=== PATIENT | female | born 1955 | race Two or more races ===

== ENCOUNTER 2024-12-14 09:58 | Outpatient (AMB) | payer OTHER, SELFPAY ==
--- NOTE | 2024-12-14 10:04 | A.OFFVIS_ITS ---
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 [place] revealed left hemispheric paroxysmal discharges. She had one seizure on 10/13/2024 and?two seizures on 10/29/2024 within few minutes of each other. She was sitting in recliner and her whole body was shaking. No incontinence or tongue bite. When she came out of it, she was confused and had headache. She slept for about two hours afterward. She had been taking levetiracetam 1000mg twice a day, however prescribed dose was 1500mg twice a day. She was here with her sister. She was taking levetiracetam 1500mg twice a day. No seizures. Headaches have been okay. Naproxen as needed helps. She has had to use it about 3 times in the last 6 weeks. Sleep was okay. She tripped and fell a few days ago and hit left arm on dresser, has bruising to left upper arm. Did not hit head. Walking with cane. [facility] Medical History (Updated 12/14/24 @ 10:18 by Tiara Gandara CNP) Migraine Chronic static encephalopathy Epilepsy GERD (gastroesophageal reflux disease) Hypertension Depression Seizure disorder Review of Systems Const Denies chills, Denies daytime sleepiness, Denies difficulty sleeping, Denies fatigue, Denies fever(s), Reports frequent falls, Reports headache(s), Denies increased appetite, Denies poor appetite, Denies snoring, Denies weakness, Denies weight gain and Denies weight loss Eyes Denies loss of vision ENT Denies vertigo, Denies dizziness and Reports headache(s) Card Denies chest pain at rest, Denies chest pain with activity, Denies syncope, Denies leg edema and Denies palpitations Resp Denies snoring GI Denies constipation, Denies heartburn, Denies diarrhea and Denies nausea Denies urinary frequency, Denies urinary incontinence and Denies urinary urgency Musc Denies abnormal gait, Denies numbness and Denies tingling Skin/Breast Denies dry skin and Denies rash Neuro Denies abnormal gait, Denies vertigo, Denies dizziness, Denies syncope, Reports frequent falls, Reports headache(s), Denies lack of coordination, Denies loss of vision, Reports memory loss, Denies numbness, Denies restless legs, Reports seizure-like activity (None in last 6 weeks), Denies tingling, Denies paresthesias, Denies tremor(s) and Denies weakness Psych Denies anxiety, Denies depression, Denies auditory hallucinations, Reports memory loss, Denies visual hallucinations and Denies suicidal ideation Endo Denies fatigue and Denies palpitations Physical Exam Const Other: General Appearance:? normal, in no acute distress. Skin:? no rashes, no significant birthmarks. Bruising to LUE. Heart:? S1, S2 normal, no murmurs. Lungs:? clear anteriorly and posteriorly. Extremities:? no edema. Psych:? alert, oriented, cognitive function intact, cooperative with exam. Neuro Other: Mental Status:?Alert and awake, answers simple questions. Cranial Nerves:?Pupils are equal, round and reactive to light. External occular muscles are intact. Visual griffiths are full. Face is symmetrical. Facial sensations are normal. Tongue is midline. Palate elevates symmetrically. Shoulder shrugging is normal. Hearing to bedside conversation is normal. Motor Examination:?DTRs 1+, mild left hemiparesis Sensory Exam:?....? Coordination:?No ataxia,?no titubation.? Gait Exam: Walking with cane. Cerebellar Signs:?[id number] is okay. Extrapyramidal System:?No tremor, rigidity with normal facial expressions.? Pronator Drift:?Not present.? Involuntary Movements:?No tremors seen.? Speech:?Normal.? Assessment & Plan Assessment & Plan (1) Epilepsy: Code(s): G40.909 - Epilepsy, unspecified, not intractable, without status epilepticus Category: Medical Qualifiers: Epilepsy type: unspecified Intractability: not intractable Status epilepticus: without status epilepticus Qualified Code(s): G40.909 - Epilepsy, unspecified, not intractable, without status epilepticus Plan: Continue levetiracetam 500mg 3 tablets twice a day (2) Chronic static encephalopathy: Code(s): G93.49 - Other encephalopathy Category: Medical Plan: Continue clorazepate dipotassium 7.5mg 1 tablet three times a day (3) Migraine: Code(s): G43.909 - Migraine, unspecified, not intractable, without status migrainosus Category: Medical Qualifiers: Migraine type: unspecified Status migrainosus presence: without status migrainosus Intractability: not intractable Qualified Code(s): G43.909 - Migraine, unspecified, not intractable, without status migrainosus Plan: Continue naproxen 500mg 1 tablet with food or milk as needed for headache once a day #10 for 30 days (4) Left arm pain: Code(s): M79.602 - Pain in left arm Category: Medical Plan: XR L shoulder ordered XR L humerus ordered Reviewed testing ordered Plan Meds tried: sumatriptan (hallucinations) Orders: Orders XR shoulder LT min 2V Today M79.602 - Pain in left arm XR humerus LT Today M79.602 - Pain in left arm Coding Level of Care Code Est Pt Level 4 (74396) Diagnoses Nonintractable epilepsy without status epilepticus, unspecified epilepsy type G40.909 Epilepsy type: unspecified Intractability: not intractable Status epilepticus: without status epilepticus Chronic static encephalopathy G93.49 Migraine without status migrainosus, not intractable, unspecified migraine type G43.909 Migraine type: unspecified Status migrainosus presence: without status migrainosus Intractability: not intractable Left arm pain M79.602
--- OUTSIDE RECORDS SUMMARY | 2024-12-14 10:43 | XMS_ITS | Clinical Summary ---
Author Organization [facility] Address [address] [place] [address] Care Team Providers Care Demand Generator Manager Name Role Phone Antonina Chinchilla MD Primary Care Prov ider Allergies Active Allergy Reactions Criticality Noted Date Comments Eslicarbazepine Diarrhea Peanuts 01/10/2017 Rufinamide 08/08/2021 Tramadol Itching Low 11/21/2018 Hydrocodone-Acetaminophen 01/10/2017 Medications Medication Sig Dispensed Refills Start Date End Date Status clorazepate (TRANXENE) 7.5 MG tablet 0 01/01/2017 Active esomeprazole (NEXIUM) 40 MG capsule 0 12/14/2016 Active COMFORT EZ PEN NEEDLES 32G X 4 MM MISC 0 12/24/2016 Active levETIRAcetam (KEPPRA) 500 MG tablet 0 12/24/2016 Active metoprolol succinate (TOPROL-XL) 24 hr tablet 25 mg 0 12/24/2016 Active FORTEO 600 MCG/2.4ML injection 0 12/24/2016 Active ALBUTEROL IN albuterol (refill) 90 mcg/actuation aerosol inhaler Q 4-6 HRS PRN COUGH/WHEEZE 0 08/13/2012 Active alendronate (FOSAMAX) tablet 70 mg alendronate 70 mg tablet 0 Active Eslicarbazepine Acetate (APTIOM PO) Aptiom 400 mgs for one week then increase to 600 for 1 week and then increase to 800 and then she sees Dr. Garcia 0 Active carBAMazepine (TEGretol) 200 MG tablet carbamazepine 200 mg tablet 0 Active cyclobenzaprine (FLEXERIL) 10 MG tablet cyclobenzaprine 10 mg tablet 0 Active lamoTRIgine 50 MG TBDP lamotrigine 50 mg disintegrating tablet Take 1 tablet twice a day by oral route. 0 Active levoFLOXacin (LEVAQUIN) 250 MG tablet levofloxacin 250 mg tablet 0 Active lisinopril (PRINIVIL,ZESTRIL ) tablet 20 mg lisinopril 20 mg tablet DAILY 0 12/03/2013 Active Esomeprazole Magnesium (NEXIUM PO) Nexium 20 mg capsule,delayed release Take 1 capsule every day by oral route for 30 days. generic name esomeprazole 0 Active nicotine (NICODERM CQ) 14 MG/24HR nicotine 14 mg/24 hr daily transdermal patch Q 24 HOURS 0 09/28/2013 Active sertraline (ZOLOFT) 25 MG tablet sertraline 25 mg tablet 0 Active topiramate (TOPAMAX) 25 MG tablet topiramate 25 mg tablet 0 Active Lacosamide (VIMPAT) 100 MG TABS tablet Vimpat 100 mg tablet 0 Act adin omeprazole (PriLOSEC) 40 MG capsule omeprazole 40 mg capsule,delayed release 0 Active amitriptyline (ELAVIL) 10 MG tablet TAKE 1 TABLET BY MOUTH EVERY NIGHT AT BEDTIME; NEEDED INCREASE BY 1 TABLET PER NIGHT PER WEEK UP TO 40mg EVERY NIGHT AT BEDTIME 0 05/06/2020 Active senna (Senna-Time) 8.6 MG tablet daily. 0 08/04/2020 Active pantoprazole (PROTONIX) 40 MG tablet daily. 0 08/04/2020 Active melatonin 3 MG TABS tablet melatonin 3 mg tablet Take 2 tablets by oral route as directed. 0 08/04/2020 Active gabapentin (NEURONTIN) 100 MG capsule gabapentin 100 mg capsule Take 1 capsule 3 times a day by oral route as directed. 0 08/04/2020 Active HYDROmorphone (DILAUDID) 2 MG tablet Take 1 tab every 4 hours as needed for pain. May fill for lesser quantity. 30 tablet 0 09/06/2020 Active Calcium Citrate + D3 Maximum 315-250 MG-UNIT TABS TAKE ONE TABLET BY MOUTH 3 (THREE) TIMES A DAY 0 12/05/2020 Active Cholecalciferol (Vitamin D) 50 MCG (1999 UT) tablet Take by mouth daily. 0 12/05/2020 Acti ve denosumab (PROLIA) injection 60 mg/mL Inject 60 mg under the skin. 0 10/22/2014 Active esomeprazole (NexIUM) 40 MG capsule Take 40 mg by mouth. 0 02/23/2016 Acti ve amoxicillin (AMOXIL) 500 MG tablet Take 4 tabs 1 hour prior to dental or surgical procedure 20 tablet 3 08/08/2021 Active Active Problems Problem Noted Date Diagnosed Date Postop check 11/04/2018 Postop check 09/23/2018 Postop check 09/23/2018 Arthritis of knee, right 03/12/2018 Arthritis of knee, left 03/12/2018 Status post arthroscopy of left knee 02/21/2017 Left knee pain 01/10/2017 Family History Medical History Relation Name Comments Tuberculosis Father Diabetes Mother Heart disease Mother Diabetes Other Lupus Other Diabetes Sister Rheumatologic disease Sister Relation Name Status Comments Father Mother Other Sister Social History Tobacco Use Types Packs/Day Years Used Date Smoking Tobacco: Never Assessed Sex and Gender Information Value Date Recorded Sex Assigned at Not on file Gender Identity Not on file Sexual Orientation Not on file Job Start Date Occupation Industry Not on file Not on file Not on file Last Filed Vital Signs Vital Sign Reading Time Taken Comments Blood Pressure - - Pulse - - Temperature - - Respiratory Rate - - Oxygen Saturation - - Inhaled Oxygen Concentration - - Weight 67.1 kg (148 lb) 08/22/2018 12:48 PM EDT Height 142.2 cm (4' 8 ) 08/22/2018 12:48 PM EDT Body Mass Index 33.18 08/22/2018 12:48 PM EDT Plan of Treatment Health Maintenance Due Date Last Done Comments Hepatitis C Screening 1955 Depression Screening 1967 BMI Counseling 1973 Preventative Health Evaluation 1973 DTap / Tdap / Td (1 - Tdap) 1974 Colon Cancer Screening (Colonoscopy) 2000 Breast Cancer Screening (Mammogram) 2005 Shingrix-Zoster Vaccine (1 of 2) 2005 Fall Risk Assessment 2020 Osteoporosis Screening (DEXA Scan) 2020 Pneumococcal Vaccine (1 of 1 - PCV) 2020 COVID-19 Vaccine (3 - 2023- season) 2024 10/15/2020, 09/24/2020 Influenza Vaccine (#1) 2025 , 04/06/2020, 03/11/2019, Additional history exists RSV Adult > 60+ Yrs or (1 - 1-dose 75+ series) 2030 Hepatitis B Vaccines Aged Out No long er eligible based on patient's age to complete this topic RSV Ped < 20 months Aged Out No longe r eligible based on patient's age to complete this topic Care Teams Demand Generator Manager Relationship Specialty Start Date End Date Antonina Chinchilla MD [address] [address] PCP - General Internal Medicine 02/20/18
--- OUTSIDE RECORDS SUMMARY | 2024-12-14 10:43 | XMS_ITS | Data Portability ---
Author Organization [facility] Address [address] [place] [address] [address] Team [address] Care Place Change Roof Bolter Name Role Phone FRANCESCA CARRERA Primary Care Provider Assessment Encounter Date Assessment Date Assessment LastModified by Organization Details LastModified Time 08/17/2022 08/17/2022 67-year-old female status post bilateral knee arthroplasties with Dr. Terrazas continues to have intermittent discomfort due to lack of exercise. He has been encouraged throughout her course that she needs to stretch every day which she states that she plans on doing however she forgets to do so admittedly. She knows will take her antibiotic prophylaxis prior to dental work which will be refilled on an as-needed basis. Follow-up visit 1 year's time for repeat clinical exam should she have any other orthopedic needs should they arise she should contact her office. She agrees with the above-noted plan. Additional treatment plan discussed with the patient in detail included the following; - Provider focused nonsteroidal anti-inflammatory regimen (discussed were the pros, cons, benefits and risks as well as any black box warnings) - Analgesic pain medication for pain suppression (discussed were the pros, cons, benefits and risks as well as any black box warnings) - The use of topical pain relieving medication were discussed - The use of ice to decrease inflammation and pain - The use of assistive ambulatory devices for ambulation and fall prevention - Formal specific guided physical therapy program I reviewed my findings at length with the patient today. We discussed the nature and etiology of this problem along with current treatment options. We discussed the expected course and outcomes and what to expect. We also discussed risks and benefits. All of their questions were answered today, and there was exhibited understanding and comprehension of all that was discussed. 10 minutes were spent reviewing previous imaging and charting. 10 minutes were spent obtaining patient history. 5 minutes were spent on physical exam. 5minutes were spent explaining diagnosis and assessment. Today's documentation was made using voice recognition software. This note may contain grammatical errors secondary to the software. Not available 08/17/2022 08:52:17 Plan of Treatment Reminders Order Date Submit Date Provider Last Modified By Organization Details Last Modified Time Details Appointments None recorded. Lab None recorded. Referral None recorded. Procedures None recorded. Surgeries None recorded. Imaging XR, knee, 1 or 2 view 2022 023 [facility], [address], [place], [address], 10:06:39 XR, knee, 1 or 2 view 2022 023 [email or web address] Not available 14:10:10 Medication Orders amoxicillin 500 mg tablet 2022 023 [facility], [place] - [id number], [address] [place] [address], [place], [address], 08:51:11 Patient TargetsNo targets recorded. Patient Instructions Encounter Date Encounter Id Patient Instructions Last Modified By Organization Details Last Modified Time 08/17/2022 [id number] Bilateral knee x-rays reveal well-seated well-positioned total knee arthroplasties without sign of loosening without acute bony abnormality. Not available 08/17/2022 08:52:32 Reason for Referral None Reported. Procedures Surgical History Date Name Laterality Status Provider Name and Address Organization Details Recorded Time operation on breast completed Chloe Ascencio [facility] 08/06/2022 13:53:28 cholecystectomy completed Chloe Ascencio [facility] 08/06/2022 13:53:44 hysterectomy completed Chloe Ascencio [facility] 08/06/2022 13:53:56 arthroplasty of knee completed Chloe Ascencio [facility] 08/06/2022 13:54:10 Imaging Results None recorded. Procedure Notes None recorded. Medical Equipment None Reported. Allergies Allergen ID Allergen Name Allergen Category Reaction Reaction Severity Criticality Documentation Date Start Date Code Code System Note Provider Name and Address Organization Details Recorded Time 29 eslicarba zepine medicatio n Not available Not available Not available 08/06/2022 74956 02 RxNorm Chloe Ascencio null, [facility] 3 13:45:20 30 acetamino phen / hydrocodo ne medicatio n Not available Not available Not available 08/06/2022 33355 2 RxNorm Chloe Ascencio null, [facility] 3 13:45:31 31 tramadol medicatio n Not available Not available Not available 08/06/2022 31440 RxNorm Chloe Ascencio null, [facility] 13:45:39 855 peanut allergeni c extract food,medi cation Not available Not available unabletoasse 08/17/2022 93823 8 RxNorm VICTOR MANUEL RUVALCABA PA-C [address], [place], [address], [facility] 3 08:35:05 856 rufinamid e medicatio n Not available Not available Not available 08/17/2022 63486 RxNorm VICTOR MANUEL RUVALCABA PA-C [address], [place], [address], [facility] 3 08:35:28 Medications Name Sig Start Date Stop Date Status Note LastModified by Organization Details LastModified Time amoxicillin 500 mg capsule TAKE FOUR CAPSULES BY MOUTH 1 HOUR prior to TO dental work active Not Available Not Available Not Available atorvastatin 40 mg tablet TAKE 1 TABLET BY MOUTH ONCE DAILY active Not Available Not Available No t Available doxycycline hyclate 100 mg capsule TAKE 1 CAPSULE BY MOUTH two (2) times a day FOR 10 DAYS active Not Available Not Available No t Available polyethylene glycol 3350 17 gram oral powder packet MIX THE CONTENT OF 1 PACKET (17gm) IN WATER AND DRINK ONCE A DAY active Not Available Not Available No t Available levetiraceta m 500 mg tablet TAKE 3 TABLETS BY MOUTH two (2) times a day active Not Available Not Available No t Available omeprazole 40 mg capsule,rene yed release TAKE 1 CAPSULE BY MOUTH ONCE DAILY DIRECTED active Not Available Not Available No t Available amoxicillin 500 mg tablet Take 4 tabs 1 hour prior to dental work 2022 active Not Available Not Available Not Avai lable nystatin 100,000 unit/gram topical cream APPLY TO THE AFFECTED AREA(S) BY TOPICAL ROUTE 2 TIMES PER DAY active Not Available Not Available No t Available methimazole 5 mg tablet TAKE 1 TABLET BY MOUTH ONCE DAILY active Not Available Not Available No t Available sertraline 25 mg tablet TAKE 1 TABLET BY MOUTH ONCE DAILY active Not Available Not Available No t Available metoprolol succinate ER 25 mg tablet,exten ded release 24 hr TAKE ONE TABLET BY MOUTH EVERY DAY DIRECTED active Not Available Not Available No t Available methimazole 10 mg tablet TAKE 1 TABLET BY MOUTH ONCE DAILY active Not Available Not Available No t Available sertraline 50 mg tablet TAKE 1 TABLET BY MOUTH ONCE DAILY active Not Available Not Available No t Available clorazepate dipotassium 7.5 mg tablet TAKE 1 & 1/2 TABLETS BY MOUTH 3 (THREE) TIMES A DAY active Not Available Not Available Not Available hydrocortiso ne 1 % topical cream with perineal applicator APPLY A THIN LAYER TO THE AFFECTED AREA(S) BY TOPICAL ROUTE 2 TIMES PER DAY active Not Available Not Available No t Available nitrofuranto in monohydrate/ macrocrystal s 100 mg capsule TAKE 1 CAPSULE BY MOUTH two (2) times a day DIRECTED FOR 7 DAYS active Not Available Not Available N ot Available sertraline active Not Available Not Av ailable Not Available alendronate active Not Available Not A vailable Not Available omeprazole active Not Available Not Av ailable Not Available lamotrigine active Not Available Not A vailable Not Available albuterol sulfate active Not Available Not Available Not Available amitriptylin e active Not Available Not Available Not Available lisinopril active Not Available Not Av ailable Not Available metoprolol succinate active Not Available Not Available No t Available gabapentin active Not Available Not Av ailable Not Available Topamax active Not Available Not Avail able Not Available Forteo active Not Available Not Availa ble Not Available Vitamin D3 50 mcg (2,000 unit) tablet TAKE 1 TABLET BY MOUTH ONCE DAILY active Not Available Not Available No t Available lacosamide active Not Available Not Av ailable Not Available calcium 315 mg (as citrate)-vit zayas D3 6.25 mcg (250 unit) tablet TAKE 1 TABLET BY MOUTH 3 (THREE) TIMES A DAY active Not Available Not Available Not Available Gavilyte-C 240 gram-22.72 gram-6.72 gram-5.84 gram oral solution fill container WITH WATER TO fill line AND DRINK 8ounces BY MOUTH DIRECTED. FOLLOW instruction s given BY doctor office active Not Available Not Available No t Available Cerovite Senior 0.4 mg-300 mcg-250 mcg tablet TAKE 1 TABLET BY MOUTH ONCE DAILY active Not Available Not Available No t Available eslicarbazep ine active Not Available Not Available Not Available Vitals None Recorded Social History None recorded. Functional Status None recorded. Mental Status None recorded. Family History Relationship Description Onset Age of this Age Resolved Age Notes LastModified by Organization Details LastModified Time Mother Diabetes mellitus [email or web address] Not available 2022 13:50:34 Mother Heart disease [email or web address] Not available 2022 13:50:52 Father Tuberculosis [email or web address] Not availa ble 08/06/2022 13:52:01 Sister Type 2 diabetes mellitus [email or web address] Not available 2022 13:52:25 Sister Rheumatoid arthritis [email or web address] Not available 2022 13:53:09 Medical History Condition Response Hypertension Y Gynecological HistoryNo gynecological history recorded. Obstetrics History GPAL:G 0 P 0 0 0 0 Past Encounters Encounter ID Performer Location Encounter Start Date Encounter Closed Date Diagnosis/Indication Diagnosis SNOMED-CT Code Diagnosis ICD10 Code Diagnosis Note [id number] [place] [id number] 08/17/2022 08:22:45 08/17/2022 08:53:31 History of total knee arthroplasty 9404221317 105 Z96.659 History of right total knee replacement 9509006431 861194 Z96.651 Health Concerns Section Related Observation LastModified by Organization Detai ls LastModified Time None Recorded Concern Status LastModified by Organization Details LastModified Time None Recorded Advance Directives Directive None Recorded Payers Insurance Date Sequence Insurance Name Policy Number Policy Powell Covered Member ID Powell Member ID Guarantor Name 08/04/2023 1 [place]ICARE B-[place]: [employer] Anaya Cagle [id number] Anaya Cagle 08/04/2023 2 MEDICAID-[place]: [facility] Anaya Martins Cagle [id number] Anaya Cagle Notes Date Note Type Note Provider Name and Address Organization Details Recorded Time 08/17/2022 text/html 67-year-old fema le who for annual follow-up replacement she is accompanied by her son at today's visit. He states that she is not very active with her stretching exercise routine. Right total knee arthroplasty performed on 1Left total knee arthroplasty performed on 09/08/2018 History of chronic stiffness due to lack of postoperative stretching exercise routine with intermittent discomfort. Minimally physically active. Understands when to take antibiotic prophylaxis prior to dental work. Here for annual follow-up no additional complaints. VICTOR MANUEL RUVALCABA PA-C [address] [place] [address],[place] [address], [place], [address], [facility] 08/17/2022 08:52:59 OBGyn Episode No OBEpisode recorded.
--- OUTSIDE RECORDS SUMMARY | 2024-12-14 10:43 | XMS_ITS | Clinical Summary ---
Author Organization [facility] Address [address] [place] [id number] Care Team Providers Care Staffing Account Manager Name Role Phone Antonina Chinchilla MD Primary Care Provider Surgical History Surgery Date Site/Laterality Comments CHOLECYSTECTOMY PROCEDURE:CHOLECYSTECTOMY HYSTERECTOMY PROCEDURE:HYSTERECTOMY EYE SURGERY PROCEDURE:EYE SURGERY BREAST SURGERY PROCEDURE:BREAST SURGERY KIDNEY STONE SURGERY PROCEDURE:KIDNEY STONE SURGERY JOINT REPLACEMENT PROCEDURE:JOINT REPLACEMENT Medical History Medical History Date Comments Hypertension DX:Hypertension Seizure disorder (CMS/HCC V24, CMS/HCC V28) DX:Seizure disorder ([facility]) Hyponatremia DX:Hyponatremia Polydipsia DX:Polydipsia Family History Medical History Relation Name Comments Tuberculosis Father Diabetes Mother Heart disease Mother Diabetes Other Lupus Other Diabetes Sister Rheumatologic disease Sister Relation Name Status Comments Father Mother Other Sister Social History Tobacco Use Types Packs/Day Years Used Date Smoking Tobacco: Never Assessed Comments Unknown Sex and Gender Information Value Date Recorded Sex Assigned at Not on file Legal Sex Female 9:07 AM EST Gender Identity Not on file Sexual Orientation Not on file Obstetrics History Plan of Treatment Upcoming Encounters Date Type Department Care Team (Late Contact Info) Description 12/21/2024 10:15 AM EDT Appointment [facility] Pulmonary [address] [place] [address] Health Maintenance Due Date Last Done Comments DTaP,Tdap,and Td Vaccines (1 - Tdap) 1974 Pneumococcal Vaccine: 50+ Years (1 of 1 - PCV) 2005 Zoster Vaccines (1 of 2) 2005 Colorectal Cancer Screening: Colonoscopy 05/03/2022 Falls Risk Assessment 05/03/2022 Hepatitis C Screening 05/03/2022 Osteoporosis Screening (Bone Density Screening) 05/03/2022 Social Influencers of Health Screening 05/03/2022 COVID-19 Vaccine (2023-2 5 season) 2024 Depression Screening 05/27/2024 Influenza Vaccine (#1) 2025 Breast Cancer Screening 02/18/2026 02/19/20, 09/25/2021, 10/24/2017 RSV Immunization Adult Patients (1 - 1-dose 75+ series) 2030 HIB Vaccines Aged Out No longer eligi ble based on patient's age to complete this topic HPV Vaccines Aged Out No longer eligi ble based on patient's age to complete this topic Hepatitis A Vaccines Aged Out No long er eligible based on patient's age to complete this topic Hepatitis B Vaccines Aged Out No long er eligible based on patient's age to complete this topic IPV Vaccines Aged Out No longer eligi ble based on patient's age to complete this topic MMR Vaccines Aged Out No longer eligi ble based on patient's age to complete this topic Meningococcal ACWY Vaccine Aged Out N o longer eligible based on patient's age to complete this topic Meningococcal B Vaccine Aged Out No l onger eligible based on patient's age to complete this topic RSV Immunization Patients Under 20 months Aged Out No longer eligible b ased on patient's age to complete this topic Varicella Vaccines Aged Out No longer eligible based on patient's age to complete this topic Procedures Procedure Name Priority Date/Time Associated Diagnosis Comments [facility] SCREENING DIGITAL Routine 02/19/2024 2:10 PM EDT Encounter for screening mammogram for malignant neoplasm of breast from Last 3 Months or Most Recently Relevant to Health Maintenance Results * [facility] SCREENING DIGITAL (02/19/2024 2:10 PM EDT) Anatomical Region Laterality Modality Mammography 02/19/2024 9:23 AM EDT Narrative 02/19/2024 2:10 PM EDT [facility] Diagnostic Imaging Department [address] [place] [id number] Patient: KATHERINE CAGLE Lakshmi Mcmullen./Age/Sex: 1955 - 68 - F Unit#: [id number] Location/Status: [facility]/REG CLI Mnemonic/Ordering Site: [facility] Ordering Physician: MEAGHAN BARNES MD [facility] Screening Digital - 02/19/[address] Report Status:Signed EXAM: [facility] Screening Digital EXAM DATE AND TIME: 02/19/2024 9:39 AM HISTORY: Screening. Excisional biopsy of the right breast in 1998, pathology benign. Percutaneous left breast biopsy in 2010, pathology benign (sclerotic fibroadenoma). COMPARISON: 09/25/21, 10/24/17, 10/10/16 TECHNIQUE: Bilateral digital breast tomosynthesis was performed in the CC and MLO projections. Computer aided detection with [employer] 3D 3.1 was employed. TISSUE DENSITY: c. The breasts are heterogeneously dense, which may obscure small masses. FINDINGS: Minimal architectural distortion within overlying skin scar is again seen in the upper outer right breast, middle depth, consistent with surgical scar. A biopsy marker is again seen in the middle 12:00 position of the left breast. No suspicious masses, grouped microcalcifications, or developing architectural distortion are seen. A 13 mm circumscribed nodule in the upper outer left breast, posterior depth, is stable, most likely a lymph node. The skin and vascularity are unremarkable. IMPRESSION: Stable mammographic appearance of the breasts. No evidence of malignancy is seen. A negative mammogram in the presence of a clinically suspicious palpable abnormality does not preclude the possibility of malignancy or alter the indications for biopsy. BI-RADS: Category 2: Benign RECOMMENDATION(S): 1: Routine screening mammogram BILATERAL in 1 year. Mammogram performed at [facility] [place] [address] Dictating Physician: JESSICA KEITH MD Electronically Signed by: JESSICA KEITH MD Dic Date/Time: 02/19/24 1409 Sign date/Time: 02/19/24 1410 Procedure Note Jessica Keith MD - 03/11/2024 [facility] Diagnostic Imaging Department [address] [place] [id number] Patient: JEOVANYKATHERINE./Age/Sex: 1955 - 68 - F Unit#: [id number] Location/Status: [facility] CLI Mnemonic/Ordering Site: [facility] Ordering Physician: MEAGHAN BARNES MD [facility] Screening Digital - 02/19/24 - [id number] Report Status:Signed EXAM: [facility] Screening Digital EXAM DATE AND TIME: 02/19/2024 9:39 AM HISTORY: Screening. Excisional biopsy of the right breast in 1998,pathology benign. Percutaneous left breast biopsy in 2010, pathology benign(sclerotic fibroadenoma). COMPARISON: 09/25/21, 10/24/17, 10/10/16 TECHNIQUE: Bilateral digital breast tomosynthesis was performed in the CCand MLO projections. Computer aided detection with [employer] 3D 3.1was employed. TISSUE DENSITY: c. The breasts are heterogeneously dense, which mayobscure small masses. FINDINGS: Minimal architectural distortion within overlying skin scar is again seenin the upper outer right breast, middle depth, consistent with surgical scar.A biopsy marker is again seen in the middle 12:00 position of the leftbreast. No suspicious masses, grouped microcalcifications, or developingarchitectural distortion are seen. A 13 mm circumscribed nodule in the upper outerleft breast, posterior depth, is stable, most likely a lymph node. The skinand vascularity are unremarkable. IMPRESSION: Stable mammographic appearance of the breasts. No evidence of malignancyis seen. A negative mammogram in the presence of a clinically suspicious palpable abnormality does not preclude the possibility of malignancy or alter the indications for biopsy. BI-RADS: Category 2: Benign RECOMMENDATION(S): 1: Routine screening mammogram BILATERAL in 1 year. Mammogram performed at [facility] [address] [address] Dictating Physician: JESSICA KEITH MD Electronically Signed by: JESSICA KEITH MD Dic Date/Time: 02/19/24 1409 Sign date/Time: 02/19/24 1410 Meaghan Barnes MD IMG BI PROCEDURES Final Res ult from Last 3 Months or Most Recently Relevant to Health Maintenance Insurance [place] [facility] Member Subscriber Plan / Payer (Ef fective 2023-Present) Name:KATHERINE CAGLE Relation to Subscriber:Self Name:Cagle Katherine Martins Payer ID:[id number] Group ID:[id number] Type:Not on file Address: [address] [place] [id number] Advance Directives Documents on File Type Date Recorded Patient Manager [employer] [facility] Care Decision (hx) 07/26/2020 INGA SHEA DIRECTIVE Care Teams Staffing Account Manager Relationship Specialty Start Date End Date Antonina Chinchilla MD [address] [address] PCP - General Internal Medicine 02/20/18
--- OUTSIDE RECORDS SUMMARY | 2024-12-14 10:43 | XMS_ITS | Patient Health Record ---
Author Organization [facility], Address [address] [place] [address] Support Name Relationship Address Phone Anaya Cagle Guarantor Unknown [phone] Reason For Referral No Information Plan Of Treatment No Information Insurance Providers Payer Name Payer Address Payer Phone Subscriber Number Group Number Insured Name Patient Relationship to Insured Coverage Start Date Coverage End Date [employer] of [place] - J13 [address] [place] [id number] Anaya Cagle Self - patient is the insured
== END 2024-12-14 10:26 | disposition home or self-care (01) ==
LOC: HO.HSM 09:59
PROVIDERS: PCP Student in an Organized Health Care Education/Training Program; Visit Provider Registered Nurse
DX: G40.909 Epilepsy, unspecified, not intractable, without status epilepticus (principal); G93.49 Other encephalopathy; G43.909 Migraine, unspecified, not intractable, without status migrainosus; M79.602 Pain in left arm
CPT/HCPCS: 99214

== ENCOUNTER 2024-12-14 09:58 | Outpatient (REF) | payer OTHER, SELFPAY ==
--- NOTE | ~2024-12-14 | XR_ITS ---
CLINICAL HISTORY: M79.602 - Pain in left arm 2 view left humerus Comparison: None provided Findings: No fractures or dislocations. Small benign-appearing focus of sclerosis within the proximal humerus, possibly a bone infarct. Mild arthritic change. IMPRESSION: 1. No acute bony abnormality. This document has been electronically signed by: Emmy Mitchell MD on 12/15/2024 16:05:35
--- NOTE | ~2024-12-14 | XR_ITS ---
CLINICAL HISTORY: M79.602 - Pain in left arm 4 view left shoulder Comparison: None provided Findings: No acute fracture. No dislocation. Small benign-appearing focus of sclerosis within the proximal humerus. This may represent a bone infarct. Mild arthritic change. No erosions. No radiopaque foreign body. There is a bandlike focus of atelectasis or scarring within the left mid lung. IMPRESSION: 1. No acute findings This document has been electronically signed by: Emmy Mitchell MD on 12/15/2024 16:04:34
== END 2024-12-14 09:59 | disposition home or self-care (01) ==
LOC: HO.XRAY 09:58
PROVIDERS: PCP Student in an Organized Health Care Education/Training Program; Visit Provider Registered Nurse
DX: G93.49 Other encephalopathy (principal); G40.909 Epilepsy, unspecified, not intractable, without status epilepticus; G43.909 Migraine, unspecified, not intractable, without status migrainosus; M79.602 Pain in left arm; Z79.899 Other long term (current) drug therapy
CPT/HCPCS: 73030; 73060; 99212

== ENCOUNTER → 2024-12-14 10:48 | Outpatient (BNV) | payer OTHER, SELFPAY | PROVIDERS: PCP Student in an Organized Health Care Education/Training Program; Visit Provider Radiology Diagnostic Radiology | DX: M79.602 Pain in left arm (principal) | CPT/HCPCS: 73030; 73060 ==